=== PATIENT | female | born 1990 | race Caucasian/White ===

== ENCOUNTER 2020-09-07 12:56 | Emergency (ER) | payer OTHER ==
[~2020-09-07 12:56] MED LIST: 8 HOUR650 MG PO; ACID CONTROL150 MG PO; BACTROBAN NASAL1 GM TOP; CEFDINIR300 MG PO; DICLOFENAC SODI75 MG PO; FLONASE ALLER15.8 ML; HYDROCODON-ACE1 EAC4 PO; IMITREX100 MG PO; MOTRIN600 MG PO; PEPCID AC20 MG PO; PERCOCET 5-3251 EACH PO; PNV PRENATAL P1 EACH PO; POLYTRIM EYE DR10 ML EYELF; PREDNISONE 20MG20 MG PO; PRENATAL FORMU1 EACH PO; PRILOSEC20 MG PO; TOPAMAX50 MG PO; VENTOLIN HFA IN18 GM INH; ZYRTEC10 MG PO
[2020-09-07 14:07] LABS: BASOPHIL 0.3 % (0-2); EOSINOPHIL 0.9 % (0-5); HCT 42.2 % (37.0-47.0); HGB 13.7 g/dl (12.5-16.0); LYMPHOCYTE 14.9 % (15-48); MCH 29.1 pg (25.0-31.0); MCHC 32.5 g/dL (32.0-36.0); MCV 89.8 fL (78.0-100.0); MONOCYTE 4.5 % (0-12); NRBC 0; PLT 353 K/uL (150-400); RDW 13.2 % (11.5-14.0); WBC 11.9 K/uL (4.0-10.5)
[2020-09-07 14:26] LABS: ALBUMIN 4.2 g/dL (3.4-5.0); BILIRUBIN - TOTAL 0.4 mg/dL (0.2-1.0); BUN/CREAT RATIO (CALC) 16.2 RATIO; CREATININE 0.8 mg/dL (0.51-0.95); GLOBULIN (CALCULATION) 3.9 g/dL; TOTAL PROTEIN 8.1 g/dL (6.4-8.2)
[2020-09-07] MEDS ORDERED: ONDANSETRON ODT4 MG PO (15:11)
== END 2020-09-07 15:37 | disposition home or self-care (01) ==
LOC: FER 12:56
PROVIDERS: Emergency Medicine
DX: K52.9 Noninfective gastroenteritis and colitis, unspecified (principal); I10 Essential (primary) hypertension; Z88.8 Allergy status to other drugs, medicaments and biological substances
CPT/HCPCS: 36415; 74022; 80053; 85025; J2405; J7030

== ENCOUNTER 2020-10-26 00:44 | Emergency (ER) | payer OTHER ==
[~2020-10-26 00:44] MED LIST changes: +ONDANSETRON ODT4 MG PO
[2020-10-26 01:32] LABS: BASOPHIL 0.4 % (0-2); EOSINOPHIL 1.5 % (0-5); HCT 41.8 % (37.0-47.0); HGB 13.8 g/dl (12.5-16.0); LYMPHOCYTE 18.1 % (15-48); MCH 29.1 pg (25.0-31.0); MONOCYTE 6.1 % (0-12); MPV 9.4 fL (6.0-9.5); NEUTROPHIL 73.5 % (41-80); NRBC 0; PLT 380 K/uL (150-400); RBC 4.75 M/uL (4.20-5.40); RDW 12.9 % (11.5-14.0); WBC 13.7 K/uL (4.0-10.5)
[2020-10-26 01:34] LABS: BILIRUBIN NEGATIVE (NEGATIVE); BLOOD NEGATIVE Ery/uL (NEGATIVE); CLARITY HAZY (CLEAR); COLOR YELLOW (YELLOW); GLUCOSE (U) NORMAL (NORMAL); LEUKOCYTES NEGATIVE Leu/uL (NEGATIVE); NITRITE NEGATIVE (NEGATIVE); PROTEIN 1+ mg/dL (NEGATIVE); SPECIFIC GRAVITY >=1.030 (1.001-1.030); UROBILINOGEN 0.2 mg/dL (0.2-1.0); pH 5.5 (5.0-9.0)
[2020-10-26 01:38] LABS: BACTERIA TRACE; URINARY RBC RARE; URINARY WBC RARE
[2020-10-26 01:39] LABS: CALCIUM OXALATE CRYSTALS MODERATE
[2020-10-26 01:42] LABS: ALBUMIN 4.1 g/dL (3.4-5.0); BILIRUBIN - TOTAL 0.5 mg/dL (0.2-1.0); BUN/CREAT RATIO (CALC) 22.2 RATIO; CREATININE 0.81 mg/dL (0.51-0.95); TOTAL PROTEIN 8.1 g/dL (6.4-8.2)
[2020-10-26] MEDS ORDERED: DICLOFENAC SODI75 MG PO (02:01)
== END 2020-10-26 02:08 | disposition home or self-care (01) ==
LOC: FER 00:44
PROVIDERS: Emergency Medicine
DX: N20.0 Calculus of kidney (principal); G89.29 Other chronic pain; I10 Essential (primary) hypertension; Z88.8 Allergy status to other drugs, medicaments and biological substances; Z79.899 Other long term (current) drug therapy
CPT/HCPCS: 36415; 80053; 81001; 82150; 83690; 85025; J1885; J2405

== ENCOUNTER 2021-11-15 18:19 | Emergency (ER) | payer OTHER ==
[2021-11-15 19:58] LABS: BILIRUBIN NEGATIVE (NEGATIVE); BLOOD 2+ Ery/uL (NEGATIVE); CLARITY CLEAR (CLEAR); COLOR YELLOW (YELLOW); GLUCOSE (U) NORMAL (NORMAL); LEUKOCYTES NEGATIVE Leu/uL (NEGATIVE); NITRITE NEGATIVE (NEGATIVE); PROTEIN NEGATIVE (NEGATIVE); UROBILINOGEN 0.2 mg/dL (0.2-1.0)
[2021-11-15 20:05] LABS: BACTERIA 1+
[2021-11-15] MEDS ORDERED: METRONIDAZOLE500 MG PO (21:15)
[2021-11-15] MEDS ORDERED: VIBRAMYCIN100 MG PO (21:15)
[2021-11-15] MEDS ORDERED: CYCLOBENZAPRINE10 MG PO (21:16)
[2021-11-18 15:07] LABS: CHLAMYDIA TRACHOMATIS, NAA Negative (Negative); NEISSERIA GONORRHOEAE, NAA Negative (Negative)
== END 2021-11-15 21:24 | disposition home or self-care (01) ==
LOC: FER 18:19
PROVIDERS: Nurse Practitioner Family
DX: N73.9 Female pelvic inflammatory disease, unspecified (principal); Z88.8 Allergy status to other drugs, medicaments and biological substances
CPT/HCPCS: 81001; 87210; 87491; 87591; 96372; 99284; J0696; J1100